=== PATIENT | male | born 1975 | race Caucasian/White ===

== ENCOUNTER 2018-05-29 13:14 | Inpatient (IN) | payer MEDICAID ==
[2018-05-29] MEDS ORDERED: cefTRIAXone(*) 2 GM VIAL 2 GM in NS(*) 0.9% 100 ML ADDVANT BAG 100 ML IVPB ONE (13:30)
[2018-05-29] MEDS ORDERED: NS(*) 0.9% 1000 ML BAG 1,000 ML IV ONE (13:30)
[2018-05-29] MEDS ORDERED: MORPHINE 4 MG/ML SDV IVP ONE ×2 (13:30→14:35)
[2018-05-29 13:42] LABS: PLATELET COUNT, AUTOMATED 255 K/uL (150-450)
--- NOTE | 2018-05-29 13:45 | ER Report ---
History and Physical Time Seen By MD: 13:18 Hx. of Stated Complaint: WOKE UP THIS AM WITH LACERATION LEFT ARM AND WRIST. STATES THAT HE DOES NOT RECALL ANY EVENTS UNTIL THREE DAYS AGO. HPI/ROS CHIEF COMPLAINT: Confusion and traumatic left arm injury HISTORY OF PRESENT ILLNESS: This is a 42-year-old male who presents to the emergency department via private vehicle for confusion and a traumatic injury to left arm. Patient states that he left [place] about 3 days ago does not seem to have a complete picture of what happened or where he is at this time. Patient states that he woke up this morning in an alley and noticed he had some deep wounds to the left arm which involve muscle, fascia and appears to have some tendon involvement as well. Patient states that he does not know what happened. Has no other traumatic injuries. Has a small abrasion to the right wrist. The blood to the left upper arm and left wrist are dark in color and all over. There is some pallor and no feeling to the left index and right thumb. He does have feeling and sensation to the left middle, ring and small finger. Patient appears anxious. Denies C-spine tenderness. Does describe intermittent chest pain as well. Patient denies headaches, nausea or vomiting. No aches, fevers or chills. REVIEW OF SYSTEMS: Constitutional: No fever, no chills. Eyes: No discharge. ENT: No sore throat. Cardiovascular: As above. Respiratory: No cough, no shortness of breath. Gastrointestinal: No abdominal pain, no vomiting. Genitourinary: No hematuria. Musculoskeletal: Above. Skin: As above. Neurological: As above. Allergies: Coded Allergies: No Known Drug Allergies (Unverified , 05/29/18) Home Meds No Active Prescriptions or Reported Meds Past Medical/Surgical History Patient has a past medical and surgical history of el to the lower legs secondary to work. Unable To Obtain Past Medical: Unable to Obtain/Update Reviewed Nurses Notes: Yes Constitutional Vital Sign - Last 24 Hours 05/29/18 05/29/18 05/29/18 05/29/18 13:17 13:30 14:00 14:30 Temp 98.5 Pulse 135 105 99 96 Resp 18 10 22 22 B/P (MAP) 138/87 124/82 (96) 111/69 (83) 127/83 (98) Pulse Ox 97 92 92 94 O2 Delivery Room Air 05/29/18 15:00 Pulse 93 Resp 10 B/P (MAP) 125/69 (87) Pulse Ox 91 Physical Exam General Appearance: The patient is alert, has no immediate need for airway protection and no signs of toxicity, appears anxious, alert to time, does understand that he is at the hospital however the events surrounding his injuries he is no recollection. Eyes: Pupils equal and round no pallor or injection. EOMs intact. No nystagmus. ENT, Mouth: Mucous membranes are dry. Respiratory: There are no retractions, lungs are clear to auscultation. Cardiovascular: Regular rate and rhythm, no murmurs, clicks or rubs. Gastrointestinal: Abdomen is soft and non tender, no masses, bowel sounds normal. Neurological: Alert and oriented to place, time and self. Following all commands. No focal neuro deficits however there is no sensation to the left thumb and index finger. Cranial nerves II through XII intact. Skin: A large open wound/laceration to the left upper forearm, the left wrist with exposed muscle, fascia and tendon. Dried blood over the left wrist and hand. Musculoskeletal: Neck is supple non tender. Extremities are nontender, nonswollen and have full range of motion. DIFFERENTIAL DIAGNOSIS: After history and physical exam differential diagnosis was considered for Medical Decision Making Data Points Result Diagram: 05/29/18 0000 05/29/18 1325 Laboratory Hematology Test 05/29/18 00:00 05/29/18 13:25 05/29/18 13:37 Red Blood Count 3.53 M/uL (4.00-5.60) Mean Corpuscular Volume 88.6 fL (80.0-96.0) Mean Corpuscular Hemoglobin 31.1 pg (26.0-33.0) Mean Corpuscular Hemoglobin Concent 35.1 g/dL (32.0-36.0) Red Cell Distribution Width 13.0 % (11.5-14.5) Mean Platelet Volume 9.4 fL (7.2-11.1) Neutrophils (%) (Auto) 76.8 % (39.4-72.5) Lymphocytes (%) (Auto) 16.7 % (17.6-49.6) Monocytes (%) (Auto) 5.4 % (4.1-12.4) Eosinophils (%) (Auto) 0.4 % (0.4-6.7) Basophils (%) (Auto) 0.7 % (0.3-1.4) Nucleated RBC Relative Count (auto) 0.0 /100WBC Neutrophils # (Auto) 13.1 K/uL (2.0-7.4) Lymphocytes # (Auto) 2.9 K/uL (1.3-3.6) Monocytes # (Auto) 0.9 K/uL (0.3-1.0) Eosinophils # (Auto) 0.1 K/uL (0.0-0.5) Basophils # (Auto) 0.1 K/uL (0.0-0.1) Nucleated RBC Absolute Count (auto) 0.00 K/uL Sodium Level 133 mmol/L (137-145) Potassium Level 3.8 mmol/L (3.5-5.0) Chloride Level 97 mmol/L (98-107) Carbon Dioxide Level 24 mmol/L (22-30) Blood Urea Nitrogen 34 mg/dl (9-21) Creatinine 2.10 mg/dl (0.66-1.25) Glomerular Filtration Rate Calc 35.2 Random Glucose 189 mg/dl (75-110) Lactate 3.0 mmol/L (0.7-2.1) Calcium Level 8.7 mg/dl (8.4-10.2) Total Bilirubin 0.6 mg/dl (0.2-1.3) Aspartate Amino Transf (AST/SGOT) 23 U/L (0-35) Alanine Aminotransferase (ALT/SGPT) 29 U/L (0-56) Alkaline Phosphatase 49 U/L (0-126) Total Protein 6.4 g/dl (6.3-8.2) Albumin 3.9 g/dl (3.5-5.0) Urine Color Yellow Urine Clarity Cloudy Urine pH 5.0 pH (4.8-9.5) Urine Specific Sabina 1.014 Urine Protein Negative mg/dL (NEGATIVE) Urine Glucose (UA) Negative mg/dL (NEGATIVE) Urine Ketones Negative mg/dL (NEGATIVE) Urine Blood Small (NEGATIVE) Urine Nitrite Negative (NEGATIVE) Urine Bilirubin Negative (NEGATIVE) Urine Urobilinogen Negative mg/dL (0.2-1.9) Urine Leukocyte Esterase Negative (NEGATIVE) Urine RBC <1 /HPF (0-2/HPF) Urine WBC 17 /HPF (0-5/HPF) Urine Squamous Epithelial Cells Moderate /LPF (</=FEW) Urine Bacteria Negative /HPF (NONE-FEW) Urine Hyaline Casts Moderate /LPF (NONE-FEW) Urine Mucus Few /HPF (NONE-FEW) Urine Opiates Screen Negative Urine Barbiturates Screen Negative Ur Tricyclic Antidepressants Screen Negative Urine Phencyclidine Screen Negative Urine Amphetamines Screen Negative Urine Benzodiazepines Screen Negative Urine Cocaine Screen Negative Urine Cannabinoids Screen Positive Serum Alcohol < 10 mg/dl Chemistry Test 05/29/18 00:00 05/29/18 13:25 05/29/18 13:37 White Blood Count 17.1 k/uL (4.5-11.0) Red Blood Count 3.53 M/uL (4.00-5.60) Hemoglobin 11.0 g/dL (14.0-18.0) Hematocrit 31.2 % (42.0-52.0) Mean Corpuscular Volume 88.6 fL (80.0-96.0) Mean Corpuscular Hemoglobin 31.1 pg (26.0-33.0) Mean Corpuscular Hemoglobin Concent 35.1 g/dL (32.0-36.0) Red Cell Distribution Width 13.0 % (11.5-14.5) Platelet Count 255 K/uL (150-450) Mean Platelet Volume 9.4 fL (7.2-11.1) Neutrophils (%) (Auto) 76.8 % (39.4-72.5) Lymphocytes (%) (Auto) 16.7 % (17.6-49.6) Monocytes (%) (Auto) 5.4 % (4.1-12.4) Eosinophils (%) (Auto) 0.4 % (0.4-6.7) Basophils (%) (Auto) 0.7 % (0.3-1.4) Nucleated RBC Relative Count (auto) 0.0 /100WBC Neutrophils # (Auto) 13.1 K/uL (2.0-7.4) Lymphocytes # (Auto) 2.9 K/uL (1.3-3.6) Monocytes # (Auto) 0.9 K/uL (0.3-1.0) Eosinophils # (Auto) 0.1 K/uL (0.0-0.5) Basophils # (Auto) 0.1 K/uL (0.0-0.1) Nucleated RBC Absolute Count (auto) 0.00 K/uL Glomerular Filtration Rate Calc 35.2 Lactate 3.0 mmol/L (0.7-2.1) Calcium Level 8.7 mg/dl (8.4-10.2) Total Bilirubin 0.6 mg/dl (0.2-1.3) Aspartate Amino Transf (AST/SGOT) 23 U/L (0-35) Alanine Aminotransferase (ALT/SGPT) 29 U/L (0-56) Alkaline Phosphatase 49 U/L (0-126) Total Protein 6.4 g/dl (6.3-8.2) Albumin 3.9 g/dl (3.5-5.0) Urine Color Yellow Urine Clarity Cloudy Urine pH 5.0 pH (4.8-9.5) Urine Specific Sabina 1.014 Urine Protein Negative mg/dL (NEGATIVE) Urine Glucose (UA) Negative mg/dL (NEGATIVE) Urine Ketones Negative mg/dL (NEGATIVE) Urine Blood Small (NEGATIVE) Urine Nitrite Negative (NEGATIVE) Urine Bilirubin Negative (NEGATIVE) Urine Urobilinogen Negative mg/dL (0.2-1.9) Urine Leukocyte Esterase Negative (NEGATIVE) Urine RBC <1 /HPF (0-2/HPF) Urine WBC 17 /HPF (0-5/HPF) Urine Squamous Epithelial Cells Moderate /LPF (</=FEW) Urine Bacteria Negative /HPF (NONE-FEW) Urine Hyaline Casts Moderate /LPF (NONE-FEW) Urine Mucus Few /HPF (NONE-FEW) Urine Opiates Screen Negative Urine Barbiturates Screen Negative Ur Tricyclic Antidepressants Screen Negative Urine Phencyclidine Screen Negative Urine Amphetamines Screen Negative Urine Benzodiazepines Screen Negative Urine Cocaine Screen Negative Urine Cannabinoids Screen Positive Serum Alcohol < 10 mg/dl Toxicology Test 05/29/18 13:37 Urine Opiates Screen Negative Urine Barbiturates Screen Negative Ur Tricyclic Antidepressants Screen Negative Urine Phencyclidine Screen Negative Urine Amphetamines Screen Negative Urine Benzodiazepines Screen Negative Urine Cocaine Screen Negative Urine Cannabinoids Screen Positive Serum Alcohol < 10 mg/dl Urinalysis Test 05/29/18 13:37 Urine Color Yellow Urine Clarity Cloudy Urine pH 5.0 pH (4.8-9.5) Urine Specific Sabina 1.014 Urine Protein Negative mg/dL (NEGATIVE) Urine Glucose (UA) Negative mg/dL (NEGATIVE) Urine Ketones Negative mg/dL (NEGATIVE) Urine Blood Small (NEGATIVE) Urine Nitrite Negative (NEGATIVE) Urine Bilirubin Negative (NEGATIVE) Urine Urobilinogen Negative mg/dL (0.2-1.9) Urine Leukocyte Esterase Negative (NEGATIVE) Urine RBC <1 /HPF (0-2/HPF) Urine WBC 17 /HPF (0-5/HPF) Urine Squamous Epithelial Cells Moderate /LPF (</=FEW) Urine Bacteria Negative /HPF (NONE-FEW) Urine Hyaline Casts Moderate /LPF (NONE-FEW) Urine Mucus Few /HPF (NONE-FEW) EKG/Imaging EKG Interpretation 12 lead EKG: Time of EKG 1345. Rhythm: Sinus tachycardia, ventricular rate 108 BPM. [place]: normal QRS: normal ST segments: No ST depression or elevation identified. Imaging Location: [facility] Patient: Alok Gallardo : 1975 Visit/Account:[id number] Date of Sevice: 05/29/2018 2 VIEWS CHEST INDICATION: Left-sided chest and arm pain. COMPARISON: None available FINDINGS: The lungs are clear. No effusion or pneumothorax is seen. Heart size and mediastinal contours are normal. IMPRESSION: 1. No radiographic evidence of active disease. Report Dictated By: Benedict Ronquillo at 05/29/2018 2:37 PM Report E-Signed By: Benedict Ronquillo at 05/29/2018 2:38 PM [id number]:[id number] ELBOW 3 VIEW LEFT Indication: Pain. Left upper extremity injury. Comparison: None Available Findings: 3 views of the left elbow are obtained. No acute fracture or dislocation is identified. There is no joint effusion. No acute osseous or joint centered abnormality. There is irregularity of the soft tissues involving the medial soft tissues of the proximal forearm. This is seen anteriorly on the lateral view. Correlate clinically. This may reflect a soft tissue laceration. IMPRESSION: 1. No acute fracture or dislocation of the left elbow. 2. Abnormal appearing soft tissues of the proximal and medial left forearm. Correlate with physical exam. No radiopaque foreign body. Report Dictated By: Benedict Ronquillo at 05/29/2018 2:38 PM Report E-Signed By: Benedict Ronquillo at 05/29/2018 2:41 PM [id number] FOREARM LEFT Indication: Arm injury. Comparison: None available Findings: 2 views of the left forearm are obtained. No acute fracture deformity is seen to involve the radius or the ulna. Distally, there is a soft tissue wound/ laceration along the volar and ulnar margin of the wrist. Proximally, there is felt to be irregularity of the soft tissues anteriorly and medially involving the proximal forearm. Correlate for an additional laceration. No radiopaque foreign body is seen proximally. Distally, there is a rounded density involving the ulnar soft tissues near the base of the laceration. A tiny foreign body here cannot be excluded. IMPRESSION: 1. No acute fracture deformity of the left forearm. 2. 2 separate soft tissue defects seen proximally and distally involving the left forearm/wrist as detailed above. A tiny foreign body associated with the distal wound cannot be excluded. Report Dictated By: Benedict Ronquillo at 05/29/2018 2:41 PM Report E-Signed By: Benedict Ronquillo at 05/29/2018 2:43 PM [id number] CT head without IV contrast HISTORY: Confusion, unknown how he arrived in [place]. COMPARISON: None. TECHNIQUE: Contiguous axial images were obtained from the skull base to the vertex without intravenous contrast. Sagittal and coronal reformatted images are also submitted. One of the following dose optimization techniques was utilized in the performance of this exam: Automated exposure control; adjustment of the mA and/ or kV according to the patient's size; or use of an iterative reconstruction technique. Specific details can be referenced in the facility's radiology CT exam operational policy. FINDINGS: Brain volume: Normal. Ventricles: Normal. Acute ischemic changes: None. Hemorrhage: No acute intracranial hemorrhage. Masses/edema: None. Dasilva-white: Negative. White matter: Normal. Vessels: Negative. Extra-axial: Negative. Calvarium/scalp: No acute fracture. Skull base/visualized face: Negative. Visualized sinuses/orbits: Mild mucosal thickening in the bilateral ethmoid air cells. 1 cm mucous retention cyst in the right sphenoid sinus. No air-fluid levels. IMPRESSION: No acute fracture, hemorrhage or intracranial mass lesion. No CT evidence of acute infarct. Report Dictated By: Steff Garza MD at 05/29/2018 2:37 PM Report E-Signed By: Steff Garza MD at 05/29/2018 3:04 PM [id number] WRIST LEFT MIN 3 VIEW Indication: Arm injury. Comparison: Exam is reviewed in conjunction with today's forearm images. Findings: 3 views of the left wrist are obtained. No acute fracture or dislocation is seen. There is a deep soft tissue defect seen along the volar aspect of the wrist which appears to extend both radially and ulnarly. Underlying neurovascular injury or tendon injury given the location of this deep soft tissue wound must be considered. There is a carpal boss best appreciated on the lateral view seen at the base of the third metacarpal. This is felt to account for a double density overlying the capitate on the frontal view. No definite soft tissue foreign body is seen within the wound itself. IMPRESSION: 1. No acute fracture or dislocation at the left wrist. 2. Deep volar sided soft tissue defect. Correlate with physical exam. Given the location and depth of this wound, this patient may be at risk for neurovascular injury or tendon injury. Report Dictated By: Benedict Ronquillo at 05/29/2018 2:44 PM Report E-Signed By: Benedict Ronquillo at 05/29/2018 2:57 PM [id number] ED Course/Re-evaluation ED Course The patient was admitted to room. A history and physical were obtained. Differential diagnoses were considered. An IV was started. A CBC, CMP, lactate, UA and toxicology screen were obtained. CBC showing white count of 17.1 with a left shift, H&H 11 and 31.2,History showing sodium 133, BUN 34, creatinine 2.10 , lactate 3.0. Urine showing small blood, 17 urine WBCs, negative urine bacteria , moderate Hylan casts, toxicology screen showing positive for cannabinoids, negative serum alcohol. Patient was given a 1 L normal saline bolus, 2 g ceftriaxone IV, 4 mg IV morphine 2. A left elbow, forearm and wrist x-ray were negative for any acute osseous abnormalities, no dislocations or fractures. Negative head CT. Negative chest x-ray. EKG showing normal sinus rhythm. There was a questionable foreign body on the forearm x-ray. I did consult speak with Dr. Meza as noted below, Dr. Cavanaugh and did come in and evaluate the patient, he is taking the patient to surgery for further evaluation of the tendons, washing the injury out and closure of the wound. The patient was admitted from the emergency department to the surgical department. Tetanus was updated. Patient did not want to report the unknown injury to low enforcement. 05/29/2018 3:15:39 pm I did speak with Dr. Meza regarding the patient's wounds and tendon involvement. I did recommend that Dr. Meza come in to formally evaluate the patient in person, he said he will be in later for evaluation. 05/29/2018 4:28:[address] Cavanaugh did come in and evaluate the patient, he is taking the patient to surgery. Decision to Disposition Date: May 29, 2018 Decision to Disposition Time: 16:34 Depart Departure Latest Vital Signs Vital Signs Date Time Temp Pulse Resp B/P (MAP) Pulse Ox O2 Delivery O2 Flow Rate FiO2 05/29/18 15:00 93 10 125/69 (87) 91 05/29/18 13:17 98.5 Room Air Impression: Primary Impression: Open wound of left forearm Additional Impressions: Open wound of left wrist Flexor tendon laceration of left wrist with open wound Adverse clinical event associated with anesthesia Condition: Improved Disposition: ADMIT FROM ER TO OR New Scripts No Active Prescriptions or Reported Meds Problem Qualifiers Primary Impression: Open wound of left forearm Encounter type: initial encounter Qualified Codes: S51.802A - Unspecified open wound of left forearm, initial encounter Additional Impressions: Open wound of left wrist Encounter type: initial encounter Qualified Codes: S61.502A - Unspecified open wound of left wrist, initial encounter Flexor tendon laceration of left wrist with open wound Encounter type: initial encounter Qualified Codes: S66.922A - Laceration of unspecified muscle, fascia and tendon at wrist and hand level, left hand, initial encounter; S61.502A - Unspecified open wound of left wrist, initial encounter Adverse clinical event associated with anesthesia Encounter type: initial encounter Qualified Codes: T41.45XA - Adverse effect of unspecified anesthetic, initial encounter JEREMIAH MARTIN-CHRISTOPHER May 29, 2018 13:45
--- NOTE | 2018-05-29 13:53 | EKG ---
FACILITY: [facility] - [place] PATIENT NAME: JAMEY LEYVA : [id number] MR: [id number] V: [id number] EXAM DATE: ORDERING PHYSICIAN: JEREMIAH MARTIN TECHNOLOGIST: USAMA Ambrocio Reason : ALOC Blood Pressure : / mmHG Vent. Rate : 108 BPM Atrial Rate : 108 BPM P-R Int : 120 ms QRS Dur : 092 ms QT Int : 352 ms P-R-T Axes : 057 076 025 degrees QTc Int : 471 ms Sinus tachycardia Otherwise normal ECG No previous ECGs available Confirmed by KAYDEN DAVISON ([id number]) on 05/29/2018 7:18:47 PM Referred By: EVELYN Confirmed By:KAYDEN DAVISON
[2018-05-29] MEDS ORDERED: DIPHTH/TETANUS/ACEL. PERTUSSIS IM ONLY ONE (14:15)
--- NOTE | 2018-05-29 14:43 | RADIOLOGY IMAGING REPORT ---
FACILITY: [facility] - [place] PATIENT NAME: Alok Gallardo : 1975 MR: [id number] V: [id number] EXAM DATE: ORDERING PHYSICIAN: JEREMIAH MARTIN TECHNOLOGIST: Location: [facility] Patient: Alok Gallardo : 1975 Visit/Account:[id number] Date of Sevice: 05/29/2018 2 VIEWS CHEST INDICATION: Left-sided chest and arm pain. COMPARISON: None available FINDINGS: The lungs are clear. No effusion or pneumothorax is seen. Heart size and mediastinal contours are nor mal. IMPRESSION: 1. No radiographic evidence of active disease. Report Dictated By: Benedict Ronquillo at 05/29/2018 2:37 PM Report E-Signed By: Benedict Ronquillo at 05/29/2018 2:38 PM WSN:[id number]
--- NOTE | 2018-05-29 14:45 | RADIOLOGY IMAGING REPORT ---
FACILITY: [facility] - [place] PATIENT NAME: Alok Gallardo : 1975 MR: [id number] V: [id number] EXAM DATE: ORDERING PHYSICIAN: JEREMIAH MARTIN TECHNOLOGIST: Location: [facility] - [place] Patient: Alok Gallardo : 1975 Visit/Account:[id number] Date of Sevice: 05/29/2018 ELBOW 3 VIEW LEFT Indication: Pain. Left upper extremity injury. Comparison: None Available Findings: 3 views of the left elbow are obtained. No acute fracture or dislocation is identified. There is no j oint effusion. No acute osseous or joint centered abnormality. There is irregularity of the soft tiss ues involving the medial soft tissues of the proximal forearm. This is seen anteriorly on the lateral view. Correlate clinically. This may reflect a soft tissue laceration. IMPRESSION: 1. No acute fracture or dislocation of the left elbow. 2. Abnormal appearing soft tissues of the proximal and medial left forearm. Correlate with physical e xam. No radiopaque foreign body. Report Dictated By: Benedict Ronquillo at 05/29/2018 2:38 PM Report E-Signed By: Benedict Ronquillo at 05/29/2018 2:41 PM WSN:[id number]
--- NOTE | 2018-05-29 14:47 | RADIOLOGY IMAGING REPORT ---
[facility] PATIENT NAME: Alok Gallardo : 1975 MR: [id number] V: [id number] EXAM DATE: ORDERING PHYSICIAN: JEREMIAH MARTIN TECHNOLOGIST: Location: [facility] Patient: Alok Gallardo : 1975 Visit/Account:[id number] Date of Sevice: 05/29/2018 FOREARM LEFT Indication: Arm injury. Comparison: None available Findings: 2 views of the left forearm are obtained. No acute fracture deformity is seen to involve the radius o r the ulna. Distally, there is a soft tissue wound/laceration along the volar and ulnar margin of the wrist. Proximally, there is felt to be irregularity of the soft tissues anteriorly and medially invo lving the proximal forearm. Correlate for an additional laceration. No radiopaque foreign body is see n proximally. Distally, there is a rounded density involving the ulnar soft tissues near the base of the laceration. A tiny foreign body here cannot be excluded. IMPRESSION: 1. No acute fracture deformity of the left forearm. 2. 2 separate soft tissue defects seen proximally and distally involving the left forearm/wrist as de tailed above. A tiny foreign body associated with the distal wound cannot be excluded. Report Dictated By: Benedict Ronquillo at 05/29/2018 2:41 PM Report E-Signed By: Benedict Ronquillo at 05/29/2018 2:43 PM WSN:[id number]
--- NOTE | 2018-05-29 15:01 | RADIOLOGY IMAGING REPORT ---
FACILITY: [facility] [place] PATIENT NAME: Alok Gallardo : 1975 MR: [id number] V: [id number] EXAM DATE: ORDERING PHYSICIAN: JEREMIAH MARTIN TECHNOLOGIST: Location: [facility] Patient: Alok Gallardo : 1975 Visit/Account:[id number] Date of Sevice: 05/29/2018 WRIST LEFT MIN 3 VIEW Indication: Arm injury. Comparison: Exam is reviewed in conjunction with today's forearm images. Findings: 3 views of the left wrist are obtained. No acute fracture or dislocation is seen. There is a deep sof t tissue defect seen along the volar aspect of the wrist which appears to extend both radially and ul narly. Underlying neurovascular injury or tendon injury given the location of this deep soft tissue w ound must be considered. There is a carpal boss best appreciated on the lateral view seen at the base of the third metacarpal. This is felt to account for a double density overlying the capitate on the frontal view. No definite soft tissue foreign body is seen within the wound itself. IMPRESSION: 1. No acute fracture or dislocation at the left wrist. 2. Deep volar sided soft tissue defect. Correlate with physical exam. Given the location and depth of this wound, this patient may be at risk for neurovascular injury or tendon injury. Report Dictated By: Benedict Ronquillo at 05/29/2018 2:44 PM Report E-Signed By: Benedict Ronquillo at 05/29/2018 2:57 PM WSN:[id number]
--- NOTE | 2018-05-29 15:08 | RADIOLOGY IMAGING REPORT ---
[place] [facility] [place] Alok Gallardo : 1975 MR: [id number] V: [id number] EXAM DATE: ORDERING PHYSICIAN: JEREMIAH MARTIN TECHNOLOGIST: Location: [facility] [place] Patient: Alok Gallardo : 1975 Visit/Account:[id number] Date of Sevice: 05/29/2018 EXAMINATION: CT head without IV contrast HISTORY: Confusion, unknown how he arrived in [place]. COMPARISON: None. TECHNIQUE: Contiguous axial images were obtained from the skull base to the vertex without intraven ous contrast. Sagittal and coronal reformatted images are also submitted. One of the following dose optimization techniques was utilized in the performance of this exam: Autom ated exposure control; adjustment of the mA and/or kV according to the patient's size; or use of an i terative reconstruction technique. Specific details can be referenced in the facility's radiology C T exam operational policy. FINDINGS: Brain volume: Normal. Ventricles: Normal. Acute ischemic changes: None. Hemorrhage: No acute intracranial hemorrhage. Masses/edema: None. Dasilva-white: Negative. White matter: Normal. Vessels: Negative. Extra-axial: Negative. Calvarium/scalp: No acute fracture. Skull base/visualized face: Negative. Visualized sinuses/orbits: Mild mucosal thickening in the bilateral ethmoid air cells. 1 cm mucous r etention cyst in the right sphenoid sinus. No air-fluid levels. IMPRESSION: No acute fracture, hemorrhage or intracranial mass lesion. No CT evidence of acute infarct. Report Dictated By: Steff Garza MD at 05/29/2018 2:37 PM Report E-Signed By: Steff Garza MD at 05/29/2018 3:04 PM WSN:[id number]
[2018-05-29] MEDS ORDERED: LIDOCAINE MPF 1% 5 ML VIAL ONE (16:47)
[2018-05-29] MEDS ORDERED: METOCLOPRAMIDE 10 MG/2 ML SDV ONE (16:47)
[2018-05-29] MEDS ORDERED: DEXAMETHASONE SOD 4 MG/ML VIAL ONE (16:47)
[2018-05-29] MEDS ORDERED: ONDANSETRON 4 MG/2 ML VIAL ONE (16:47)
[2018-05-29] MEDS ORDERED: PROPOFOL EMUL(*) 10MG/ML 20 ML 20 ML ONE (16:47)
[2018-05-29] MEDS ORDERED: fentaNYL CITR 250 MCG/5 ML AMP ONE (17:03)
[2018-05-29] MEDS ORDERED: ROPIVACAINE 0.2% 20 ML VIAL ONE (17:07)
[2018-05-29] MEDS ORDERED: NORMOSOL R SOLN(*) 1000 ML BAG 1,000 ML IV ONE ×2 (17:12→21:45)
[2018-05-29] MEDS ORDERED: FAMOTIDINE(*) 20MG/50ML PREMIX 50 ML IVPB ONE (17:12)
[2018-05-29] MEDS ORDERED: LACTATED RINGER 3000 ML BAG IR ONE (18:22)
[2018-05-29] MEDS ORDERED: NS 0.9% IRRIGATION 1000ML PLCT IR ONE (18:23)
[2018-05-29] MEDS ORDERED: BACITRACIN/POLYMY B OINT 15 GM TP ONE (19:21)
[2018-05-29] MEDS ORDERED: fentaNYL CITR 100 MCG/2 ML AMP ONE ×4 (19:32→21:59)
[2018-05-29] MEDS ORDERED: HEPARIN SOD LCK FLSH 100 UN/ML ONE (19:32)
[2018-05-29] MEDS ORDERED: LIDOCAINE 2% IV 100 MG/5ML SYR ONE (20:46)
[2018-05-29] MEDS ORDERED: SUGAMMADEX SOD 200 MG/2 ML SDV ONE (20:50)
[2018-05-29] MEDS ORDERED: HYDROmorphone HCL 2 MG/ML SDV ONE (21:27)
--- NOTE | 2018-05-29 21:36 | CONSULTATION ---
EVENT DATE: May 29, 2018 ATTENDING PHYSICIAN Emergency Room CONSULTING PHYSICIAN Sebastian Cavanaugh MD REASON FOR CONSULTATION I was contacted by my partner, Dr. Meza, to evaluate a patient in the Emergency Room because he was busy in clinic and could not get down. The patient had a very odd story, and we really do not know a lot about him. 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 He was on vacation and was touring [facility]. He has no family members in this area, and he has no recollection of how he got to [place]. He woke up this morning in an alleyway here in this town with two large lacerations on his forearm and wrist and extensive evidence of blood loss around him and on his clothing. There was no blood in his vehicle. He felt quite dizzy and weak. He had a headache and chest pain. He followed signs for hospitals and came here to [facility]. He does not recall driving to [place] and does not remember any type of an injury or an assault. He has no suicidal ideation and never had any in the past. He does admit to drinking occasionally, and he thinks he might have done some binge drinking, but he does not have any recollection of the last several days. He does admit to occasionally using marijuana, but only infrequently. His tox screen did show a slight amount of marijuana, but no other evidence of drug use, and his alcohol level was zero. He remains somewhat confused. His head CT was normal. H and H did show some signs of decrease, but it was still very acceptable with a hematocrit of 30. His white count was 17. We do not know how long ago the lacerations happened. I asked him how long ago it had been since he ate, and he suspects that it might have been several days. PHYSICAL EXAMINATION There is a large oblique laceration on the volar forearm with open fascia and muscle involvement. There is another laceration distally at the wrist which looks fairly deep. I did not explore because it was too tender. There was a lot of old, dried blood caked around with scab formation. No sign of purulence at this time, but certainly, this risk of infection is extremely high in this situation if it has been open for several days. He has decreased sensory function in the median nerve distribution, normal sensory function in the ulnar nerve distribution. Motor function of the ulnar nerve was difficult to test, but I believe the intrinsics are working. It does not appear that he has FPL function, but FDS and FDP function to the index through small fingers appears to be intact. At this point, it appears he has at least a laceration of the flexor pollicis longus and perhaps partial lacerations to other tendons. The flexor carpi radialis may be lacerated as well. More proximally, it looks like it is mostly a muscle belly laceration. I do not see any evidence of arterial bleeding. His hand is vascularized. DIAGNOSTIC DATA X-rays reportedly showed no evidence of foreign body or fracture. ASSESSMENT AND PLAN These wounds are far too large to treat locally. It does require general anesthetic with irrigation, debridement, and hopefully closure if we get adequate debridement to protect the tendons and muscle beneath these. The risk of infection is moderately high. He has already received an antibiotic. Will give him additional. I told him that the median nerve would most likely be repairable, but probably would not start functioning for some time, most likely approximately half a year for the sensory nerve function in the tip of the finger, and it will not come back completely, but hopefully it will have protective sensation. The flexor pollicis longus tendon should be able to function fairly early, but he would require physical therapy and splinting. Final determination about the level of injury will, of course, be made at the time of exploration. Additional information was acquired after my initial dictation once I had been able to pull up records. He has been afebrile with stable vital signs, blood pressure around 125/69. He did have occasional tachycardia at 135, but normally he was in the mid 90s. White count was 17.1. Hemoglobin was 11. Hematocrit was 31.2. He did have a left shift at 76.8 with elevated lymphocytes at 16.7. His glucose was elevated, suggesting diabetes at 189. Blood alcohol level was less than 10 mg/dL. Opiate, barbiturate, tricyclic, phencyclidine, amphetamine, and benzodiazepine screen was all normal. He did test positive for cannabinoids. I did review x-rays of his elbow, forearm, and wrist. The soft tissue lacerations are visible on these x-rays, but there is no evidence of foreign body or fracture. In addition, I looked at his chest x- ray. I see no evidence of other trauma. There is no rib fracture. I do not see any sign of a pulmonary lesion. MTDD
[2018-05-29 21:46] LABS: PLATELET COUNT, AUTOMATED 186 K/uL (150-450)
[2018-05-29 22:22] VITALS: BP 143/85
[2018-05-29] MEDS ORDERED: HEPARIN* SOD/D5W 25000 U/500ML 500 ML IV SCH ×3 (22:40→23:30)
[2018-05-29] MEDS ORDERED: MORPHINE 1 MG/ML 30 ML PCA IV PRN ×2 (22:40→23:10)
[2018-05-29] MEDS ORDERED: MAGNESIUM CITRATE 300 ML BTL PO ONE (22:40)
--- NOTE | 2018-05-29 22:47 | OPERATIVE REPORT 1 ---
EVENT DATE: May 29, 2018 SURGEON: Sebastian Cavanaugh MD ANESTHESIOLOGIST: Vaibhav Larios MD ANESTHESIA: General. COMMODITIES CLERK: Alok Winkler PA-C PREOPERATIVE DIAGNOSIS Lacerations to forearm and wrist on left upper extremity which appeared to be self-inflicted, but the patient denies same, and yet the patient also has no recollection of the past several days. POSTOPERATIVE DIAGNOSES 1. A 12 cm laceration, left forearm. 2. Complete transverse laceration at wrist, zone 5. 3. Zone 6 laceration of flexor digitorum superficialis muscle belly. 4. Zone 5 lacerations of the following tendons: Abductor pollicis longus, extensor pollicis brevis, flexor digitorum profundus, index; flexor digitorum profundus, long; flexor digitorum superficialis, long; flexor digitorum superficialis, index; flexor pollicis longus, flexor carpi ulnaris, flexor carpal radialis, and palmaris longus. 5. A 100% laceration of radial artery which had clotted off. 6. A 50% laceration of ulnar artery which presumably was still functioning to some extent. 7. Median nerve laceration 100%. PROCEDURES PERFORMED 1. Exploration of wounds at forearm and wrist with debridement and closure of 12 and 7 cm lacerations at proximal forearm and wrist respectively. 2. Median nerve repair. 3. Repair of laceration at forearm with repair of flexor digitorum superficialis zone 6. 4. Repair of laceration at wrist with repair of abductor pollicis longus, extensor pollicis brevis, flexor digitorum profundus to index and long; flexor digitorum superficialis to index and long; flexor pollicis longus, flexor carpi ulnaris, flexor carpi radialis, palmaris longus. 5. Ligation of stumps of radial artery. 6. Repair of sidewall ulnar artery, including heparin administration. ESTIMATED BLOOD LOSS 70 INTRAVENOUS FLUIDS 1600 TOURNIQUET TIME 129 SPECIMENS No specimens. COMPLICATIONS No complications. IMPLANTS USED No implants. SUMMARY OF PROCEDURE The patient was brought into the operating room and placed on the OR table in the supine position with the hand table to his left side. After obtaining adequate general anesthesia, the left upper extremity was prepped and draped. The prepping process was fairly lengthy because we had to scrub off all the old blood and then wash his hand and forearm which were crusted over since these wounds were not fresh. We then used pulsatile lavage to clean the wounds, having exsanguinated the limb and inflated the tourniquet. There was no gross contamination of the wound that I could identify. Based on the pattern of the incisions, it appeared to be a self-inflicted laceration, but this is not certain. For a [id number] individual, the obliquity of the lacerations would fit. It appears that it was at extremely violent force because on the distal laceration, it went all the way down to the bone and scored the bone with a fairly deep groove. This was primarily on the volar radial aspect. We started with the proximal incision, washing this out, debriding damaged tissue on the margins, and then repaired the FDS in zone 6 using Vicryl suture in multiple positions. This was then irrigated one more time and then left with a moist Ray-Jing covering it. We then moved to the distal incision where most of the damage had occurred. After debriding this area, irrigating it, and then extending the incision both distally and proximally, we tied back the flaps and began to work on the damaged tissue. We started from radial and moved to ulnar. The extensor pollicis brevis and abductor pollicis longus were seen to be lacerated. We did a core and epitendinous suture on both of them. At this point, we noted that the radial artery was in two pieces, but it was not bleeding extensively at the time of his initial evaluation before tourniquet inflation, and the hand did appear vascularized, so at this point, I just tied it off because I did not want to have the artery bleed later. The FDP to the index was next identified, repaired with a core suture of 4-0 FiberWire loop sutures and epitendinous suture. We then did the FDP tendon to the long finger in similar fashion. Next , we moved towards the superficial aspects and repaired the FDS to the long and index, again with a core suture and epitendinous repair. At this point, we went back and searched for the flexor pollicis longus and found it, repairing this with a core suture using FiberLoop and then an epitendinous repair. Moving toward the ulnar aspect, we noted that the FCU and the FCR were both lacerated. We left the FCU for the time being. The median nerve was seen to be completely lacerated, which is quite unfortunate. In addition, a surprise finding was that the ulnar artery had a 50% laceration along its side with a large hematoma blocking it. I would assume that this is what was keeping hand alive, so I took great care to protect this artery. We cleaned off the margins and then irrigated it with saline first, after which I did a heparin flush using an Angiocath distally and proximally to clear it to the best of my ability. I then placed background behind it and used 6-0 Prolene suture with micro instruments to repair the sidewall injury. We then continued the repair with #2 FiberWire suture for the flexor carpi ulnaris as well as the flexor carpi radialis, but before repairing the flexor carpi radialis, we did a full eponeurial repair of the median nerve. I took care to ensure that the fascicles were completely contained in the repair. Finally, as noted previously , the FCR was repaired. During the remainder of this case, the hand was kept flexed which was critical to maintain position. We did repair the palmaris longus mainly because I felt it could be used later as a graft, certainly not because it was critical. We then irrigated once again, deflated the tourniquet , checked for bleeding. The ulnar artery seems to be working to some extent as one could poke the finger and get bleeding, but his hand is definitely at risk. We gave him 5000 units of heparin and irrigated all the wounds again before closing with nylon. He was given a dry, sterile dressing and a dorsal splint, keeping his fingers and wrist flexed with a thumb outrigger to protect that tendon as well. He was sent to the Intensive Care Unit where he would remain on a heparin drip, and I will instruct the nurses to monitor the status of his hand such that he could be life flighted to [place] if necessary. Hopefully, he will remember how he got to [place] before he heads back to [place]. CRAIG
[2018-05-29 23:00] VITALS: BP 173/77
[2018-05-29] MEDS ORDERED: KCL/D5LR 20 MEQ/1000 ML PREMIX 1,000 ML IV SCH (23:10)
[2018-05-29 23:15] VITALS: BP 178/84
[2018-05-29] MEDS ORDERED: INSULIN HUM LISPRO 100 UN/ML 3 ML VIAL SUBQ PRN (23:25)
[2018-05-29 23:30] VITALS: BP 176/81
--- NOTE | 2018-05-29 23:40 | Hospitalist Consultation ---
History of Present Illness Requesting Physician Mao Reason for Consult Management of heparin drip History of Present Illness 42yo male who is smoker who was came to the ER for bleeding of his left arm and dizziness. He is from [place] and has been traveling in his car for the last couple of days. 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 The events over the last couple days are not clear to him. He is not able to say where he was going, where he has been, or when he planned on going home. He denies any head trauma. He reports waking up in an alley in [place] and noticed blood on his left arm. He has no recollection of how he came to [place]. He felt light headed and weak. He noted chest discomfort. He was able to find his car, so he got in it and drove to the ER. He denies any recent emotional traumas or events. He denies suicidal ideation or any previous suicide attempts. He denies headache/blurry vision/double vision/f/c/n /v/sob/diarrhea. He still has some slight chest discomfort. He currently smokes 1/2 ppd and has smoked for almost 30 years. He does binge drink up to a 12 pack of beer about 2x/week. He doesn't drink the other days of the week. He smokes marijuana occasionally, but denies any other drug use. He denies any h/o DVT/PE/COPD/asthma/CVD/CHF/CAD/T2DM/HTN. He takes no prescription medications. In the OR, he had about 70cc of blood loss. He received about 1500cc of crystalloid fluid. He did receive doses of heparin into the arteries of the hand. History Problems: (1) History of tonsillectomy Home Meds No Active Prescriptions or Reported Meds Allergies: Coded Allergies: No Known Drug Allergies (Unverified , 05/29/18) Other Social/Family Hx See HPI. Review of Systems All Systems Reviewed/Normal: Yes, Except as Noted Exam Vital Signs Vital Signs Date Time Temp Pulse Resp B/P (MAP) Pulse Ox O2 Delivery O2 Flow Rate FiO2 05/29/18 21:11 111 20 99 05/29/18 17:00 130/79 (96) 05/29/18 13:17 98.5 Room Air General Appearance: Alert, Awake, No Acute Distress, Other (No obvious trauma to head.) Eyes: PERRLA ENT: Moist Mucous Membranes Cardiovascular: Other (Regular, tachy, no m/r/g) Respiratory: Clear to Auscultation GI: Abd Soft and Non-Tender Extremities: No Edema Integumentary: Other (distal tip of fingers are warm. Pulse oximeter has a good wave form consistent with the wave form from the other hand) Medical Decision Making Data Points Result Diagram: 05/29/18213405/29/181324 Item Value Date Time Hemoglobin 11.0 g/dL L 05/29/18 0000 Hemoglobin 9.8 g/dL L 05/29/182134 White Blood Count 16.6 k/uL H 05/29/182134 White Blood Count 17.1 k/uL H 05/29/18 0000 Neutrophils (%) (Auto) 76.8 % H 05/29/18 0000 Neutrophils (%) (Auto) 89.3 % H 05/29/182134 Mean Corpuscular Volume 88.6 fL 05/29/18 0000 Mean Corpuscular Volume 90.4 fL 05/29/182134 Platelet Count 186 K/uL 05/29/182134 Platelet Count 255 K/uL 05/29/18 0000 Heparin Anti-Xa Act, Low Molec Wt 0.64 IU/mL 05/29/182157 Activated Partial Thromboplast Time 83 seconds H 05/29/182157 Blood Urea Nitrogen 34 mg/dl H 05/29/18 1325 Creatinine 2.10 mg/dl H 05/29/18 1325 Lactate 3.0 mmol/L H 05/29/18 1325 Calcium Level 8.7 mg/dl 05/29/18 1325 Total Bilirubin 0.6 mg/dl 05/29/18 1325 Aspartate Amino Transf (AST/SGOT) 23 U/L 05/29/18 1325 Alanine Aminotransferase (ALT/SGPT) 29 U/L 05/29/18 1325 Alkaline Phosphatase 49 U/L 05/29/18 1325 Total Protein 6.4 g/dl 05/29/18 1325 Albumin 3.9 g/dl 05/29/18 1325 Random Glucose 189 mg/dl H 05/29/18 1325 Urine Blood Small 05/29/18 1337 Urine RBC <1 /HPF 7/17/18 1337 Urine WBC 17 /HPF 05/29/18 1337 Urine Squamous Epithelial Cells Moderate /LPF H 05/29/18 1337 Urine Bacteria Negative /HPF 05/29/18 1337 Urine Hyaline Casts Moderate /LPF H 05/29/18 1337 Urine Mucus Few /HPF 05/29/18 1337 Serum Alcohol < 10 mg/dl 05/29/18 1337 Urine Cannabinoids Screen Positive 05/29/18 1337 EKG / Imaging EKG Interpretation Vent. Rate : 108 BPM Atrial Rate : 108 BPM P-R Int : 120 ms QRS Dur : 092 ms QT Int : 352 ms P-R-T Axes : 057 076 025 degrees QTc Int : 471 ms Sinus tachycardia Otherwise normal ECG No previous ECGs available Confirmed by KAYDEN DAVISON ([id number]) on 05/29/2018 7:18:47 PM Imaging CXR - 1. No radiographic evidence of active disease. Head CT - No acute fracture, hemorrhage or intracranial mass lesion. No CT evidence of acute infarct. See Hospital chart for elbow/forearm/wrist xray reports. Assessment and Plan Problems: (1) Open wound of left wrist Status: Acute Assessment & Plan: He presented with lacerations on the left wrist and forearm that appear self inflicted. The patient denies suicidal ideation or previous history of suicide attempts. However, he reports no recollection of the last couple of days, nor how he got to [place]. He does report 2x/week binge drinking. He will need a BHS evaluation before discharge. He had surgical repair this evening. See Dr. Cosby's note for details. Dr. Cosby wants to have the patient on a heparin drip. The patient did receive heparin in the OR, such that baseline PTT and heparin anti-factor Xa are elevated. He will be placed on the weight based protocol and following heparin anti-factor Xa. (2) Anemia due to blood loss Status: Acute Assessment & Plan: Secondary to transection of the radial artery and damage from lacerations. He presented with tachycardia, an elevated lactate and low Hgb. BP has remained stable. His Hgb after surgery dropped slightly. Will recheck Hgb and lactate. (3) ARF (acute renal failure) Status: Acute Assessment & Plan: Likely secondary to blood loss. He is getting hydration. Will follow. (4) Hyperglycemia Status: Acute Assessment & Plan: He denies a h/o of T2DM. Will follow glucose AC and HS with SSI level 2 to cover. HgA1C pending. (5) Pyuria Status: Acute Assessment & Plan: He is asymptomatic, but does have an elevated WBC. Will culture the urine and follow the WBC. Copies to: JUNAID COSBY MD Venous Thromboembolism Antithrombotics Is Pt On Any Antithrombotics?: No Exam Sepsis Risk: No Definite Risk Problem Qualifiers (1) Open wound of left wrist: Encounter type: initial encounter Qualified Codes: S61.502A - Unspecified open wound of left wrist, initial encounter KAYDEN DAVISON MD May 29, 2018 23:40
[2018-05-29 23:45] VITALS: BP 162/98
[2018-05-30] VITALS (29 sets, daily range): BP systolic 132–175; BP diastolic 68–110
[2018-05-30] MEDS: ceFAZolin 1 GM VIAL IVP SCH ×2 (00:43→08:56)
[2018-05-30] MEDS ORDERED: ceFAZolin 1 GM VIAL IVP SCH (01:00)
[2018-05-30] MEDS ORDERED: INSULIN HUM LISPRO 100 UN/ML 3 ML VIAL SUBQ PRN (01:20)
[2018-05-30 06:03] LABS: PLATELET COUNT, AUTOMATED 174 K/uL (150-450)
[2018-05-30] MEDS ORDERED: MAGNESIUM CITRATE 300 ML BTL PO PRN (09:00)
[2018-05-30] MEDS ORDERED: ASPIRIN 325 MG TAB PO SCH (09:00)
[2018-05-30] MEDS ORDERED: NS(*) 0.9% 250 ML BAG 250 ML IV SCH (09:35)
--- NOTE | 2018-05-30 11:39 | Antimicrobial Stewardship ---
Antimicrobial Time Out Antimicrobial Stewardship MD Service: Hospitalist Indications: Other (Laceration of the arm with deep muscle and tendon damage) Antimicrobial Used Cefazolin Start Date: May 29, 2018 Culture Results: No Eligible for PO Conversion Eligable for PO Conversion: No Reviewed with Provider Reviewed w/ Provider on Rounds: Yes Date Reviewed w/ Provider: May 30, 2018 Comments Comments 42 yo M with left arm lacerations with deep tissue and tendon damage, repaired by Dr. Cavanaugh. Unknown time and event timelines, patient reports confusion. afebrile with elevated WBCs Treatment with Cefazolin 1g IV q8h, to continue for a minimum of 24 h IV, then consideration of oral antibiotics to complete a course of treatment for 7-10 day. Would recommend a longer duration, as wound timeline unknown. Will monitor temp, wbcs, etc. Cami Corey, PharmD, BCOP [facility]I COREY May 30, 2018 11:39
--- NOTE | 2018-05-30 14:16 | Hospitalist Progress Note ---
Subjective Progress Notes Subjective Pt presented with laceration of the L forearm. No adverse events overnight. Patient Complains of: Neurological: No: Syncope, Confusion, Weakness, Dizziness, Slurred Speech, Other Cardiovascular: No: Chest Pain, Palpitations, Orthostatic Hypotension, Other Respiratory: No: Cough, Congestion, Shortness of Breath, Wheezing, Other Gastrointestinal: No Nausea, No Vomiting, No Flatus, No Bowel Movement, No Other Genitourinary: No Dysuria, No Hematuria, No Urinary Incontinence, No Other Musculoskeletal: Pain Physical Exam Vital Signs Date Time Temp Pulse Resp B/P (MAP) Pulse Ox O2 Delivery O2 Flow Rate FiO2 05/30/18 11:30 98.6 05/30/18 11:15 99 13 96 Room Air 05/30/18 11:10 164/79 05/30/18 10:30 1.0 Intake and Output 05/31/18 07:00 Intake Total 490 ml Output Total 775 ml Balance -285 ml Intake Oral 240 ml Blood Product 250 ml Output Urine Total 775 ml General Appearance: Alert, Awake, No Acute Distress Neuro: No Gross deficits Eyes: PERRLA ENT: Normal Neck: No Masses Cardiovascular: Normal Rhythm & Peripheral Pulses Respiratory: No Respiratory Distress Chest: No Masses GI: Soft and Non-Tender Lymph: No Adenopathy Musculoskeletal: Other (Pain of L hand, numbness) Extremities: Warm, Pulses Integumentary: Skin Intact without Lesion / Mass Psych: Alert & Oriented X3 Result Diagram: 05/30/18 0540 05/30/18 0545 Assessment and Plan Problems: (1) Open wound of left wrist Status: Acute Assessment & Plan: He presented with lacerations on the left wrist and forearm that appear self inflicted. The patient denies suicidal ideation or previous history of suicide attempts. However, he reports no recollection of the last couple of days, nor how he got to [place]. He does report 2x/week binge drinking. He had surgical repair 05.29.18. See Dr. Cavanaugh's note for details. Transfused on unit PRBC as he was mildly hypoxic and had significant blood loss prior to arrival. If Hgb stable would be ok with d/c from medical standpoint after [facility] evaluates. (2) Anemia due to blood loss Status: Acute Assessment & Plan: Secondary to transection of the radial artery and damage from lacerations. Transfused one unit PRBC given hypoxia and low Hgb. (3) ARF (acute renal failure) Status: Resolved Assessment & Plan: 2/2 blood loss and hypotension, resolved with IV fluid. (4) Hyperglycemia Status: Acute Assessment & Plan: He denies a h/o of T2DM. Stop glucose checks and SSI. HgA1C 5.7 (5) Asymptomatic bacteriuria Assessment & Plan: Pt asymptomatic. WBC in urine with mild leukocytosis, leukocytosis likely stress reaction and improved. Exam Sepsis Risk: No Definite Risk Problem Qualifiers (1) Open wound of left wrist: Encounter type: initial encounter Qualified Codes: S61.502A - Unspecified open wound of left wrist, initial encounter SEFERINO LOZOYA DO May 30, 2018 14:16
--- NOTE | 2018-05-30 15:57 | Psychiatric Consult ---
History of Present Illness Requesting Physician Dr. Arcelia Armando Reason for Consult: Psychiatric Illness Reason for Consult Pt with wound to left arm who states he does not remember how it happened, concern for whether or not this was suicide attempt. History of Present Illness 42 year old male who says he woke up in an alley in [place], covered in blood, with no memory for the previous couple of days or of how he was injured. He was able to drive himself to the ER, where CT of head was unremarkable. He underwent surgery for a deep wound to left arm which included lacerated tendons and radial artery. Throughout his hospital stay he has denied that this was a suicide attempt, and continues to state he does not remember the past two days or so. Pt said he left [place] maybe 4-6 days ago to go on a road trip. He remembers stopping to see the view and the mountains. Then he woke up in the alley. I got his permission to contact his family and also the [place] [employer]. His sister, Cathy Gallardo ([phone]) returned my call. She is a registered nurse and considered reliable informant based on her fund of knowledge, and calm but concerned demeanor. She stated that pt. has no prior history of suicidal thinking or behaviors, no recent losses that she knows of, no history of using any drugs other than beer and occasional marijuana, no prior history of memory loss, no known significant medical history, and no known enemies that might want to harm him. 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 She last saw him about a week ago. She said he often travels by himself, either camping or hunting or road trips, and she was not surprised that he was as far away as [place]. She spoke with him, and she indicated later to me that she will try to help make arrangements to get him home and will assist him with follow-up once he is back home. Patient Refused Consult: No [facility] - Subjective Progress Notes Subjective Pt is in ICU hospital bed with bandaged left arm. States, "I don't know what happened, I went on a road trip. This was not a suicide attempt, why would I have driven myself to the hospital? I've never been suicidal in my life, I'm not that kind of travis." Suicidal Ideation: None Homicidal Ideation: None [facility] - Objective Mental Status Exam General Appearance: Casual, Good Eye Contact, Cooperative, Polite, Good Interaction Speech: Clear, Spontaneous, Normal Rate, Normal Rhythm, Normal Volume, Normal Tone Mood: Other ("I feel OK other than freaked out by all this, I just want to get back home....") Affect: Full and Appropriate, Calm, Anxious (mildly anxious, asking to call his sister, mildly upset by strange circumstances) Thought Process: Organized, Logical, Goal Directed Thought Content: No Suicidal Ideation, No Homicidal Ideation, No Delusions, No Auditory Halllucinations, No Visual Hallucinations, No Thought Broadcasting, No Ideas of Reference, No Obsessions, No Compulsions, No Other Sensorium: Clear Cognition: Alert & Oriented-Person, Alert & Oriented-Place, Alert & Oriented- Time, Xgrzu-[id number]-Nvoiegmop Memory: Other (Pt has about a 1 to 2 day period of no recollection-- unsure how long. See HPI. Is able to recall all events since he woke up, is able to give me sister and father's phone numbers, good recall for remote history.) Intelligence: Average Insight Judgment: Good (drove himself to the ER, cooperative in the hospital with staff requests) Result Diagram: 05/30/18 1410 05/30/18 0545 [facility] Assessment and Plan [id number] Encounter Date: May 30, 2018 [id number] Encounter Time: 12:00 Follow Up Testing Recommended: No Problems: (1) Amnesia, global, transient Assessment & Plan: Unclear what is etiology of amnesia-- trauma, blood loss? CT of head was unremarkable. Based upon my interaction with the pt., his stated history, mental status exam, and reliable collateral information obtained from his sister, I do not believe that pt represents a danger to himself or others, nor that we have grounds to detain him against his will on a mental health hold. He does not have any prior mental health history, nor clear evidence that this was a suicide attempt. He does not want further treatment here, he wants to return to [place], which sister will help him arrange. He and sister agree that he will follow up at home if any further memory problems occur which sister will help him arrange; she will also help him with wound care and follow up with surgeon for after-care for his arm. Treatment Recommendation: Outpatient Treatment (Follow up for wound care, post- op follow up. Follow up with neurology or psychiatry if indicated (recurrence of memory problems or psychological trauma)) RASHI GARCIA MD May 30, 2018 15:57
[2018-05-30] MEDS ORDERED: OXYC5CAP21 PO (15:58)
[2018-05-30] MEDS ORDERED: ASPI-757 PO (16:07)
[2018-05-30] MEDS ORDERED: ROCURONIUM BROM 10 MG/ML 10 ML ONE (18:00)
== END 2018-05-30 16:15 | disposition home or self-care (01) | DRG 908 ==
LOC: ER 13:39 → OR 15:58 → ICU 22:22
PROVIDERS: ADMIT Orthopaedic Surgery Hand Surgery; ATTEND Orthopaedic Surgery Hand Surgery
PROC: 03QA0ZZ Repair Left Ulnar Artery, Open Approach (ICD-10-PCS; 2018-05-29)
PROC: 0LQ60ZZ Repair Left Lower Arm and Wrist Tendon, Open Approach (ICD-10-PCS; 2018-05-29)
PROC: 0KQB0ZZ Repair Left Lower Arm and Wrist Muscle, Open Approach (ICD-10-PCS; 2018-05-29)
PROC: 01Q50ZZ Repair Median Nerve, Open Approach (ICD-10-PCS; 2018-05-29)
PROC: 0LQ60ZZ Repair Left Lower Arm and Wrist Tendon, Open Approach (ICD-10-PCS; 2018-05-29)
PROC: 0LQ60ZZ Repair Left Lower Arm and Wrist Tendon, Open Approach (ICD-10-PCS; 2018-05-29)
PROC: 0LQ60ZZ Repair Left Lower Arm and Wrist Tendon, Open Approach (ICD-10-PCS; 2018-05-29)
PROC: 0LQ60ZZ Repair Left Lower Arm and Wrist Tendon, Open Approach (ICD-10-PCS; 2018-05-29)
PROC: 0LQ60ZZ Repair Left Lower Arm and Wrist Tendon, Open Approach (ICD-10-PCS; 2018-05-29)
PROC: 0LQ60ZZ Repair Left Lower Arm and Wrist Tendon, Open Approach (ICD-10-PCS; 2018-05-29)
PROC: 0LQ60ZZ Repair Left Lower Arm and Wrist Tendon, Open Approach (ICD-10-PCS; 2018-05-29)
PROC: 0LQ60ZZ Repair Left Lower Arm and Wrist Tendon, Open Approach (ICD-10-PCS; 2018-05-29)
PROC: 0LQ60ZZ Repair Left Lower Arm and Wrist Tendon, Open Approach (ICD-10-PCS; 2018-05-29)
PROC: 0LQ60ZZ Repair Left Lower Arm and Wrist Tendon, Open Approach (ICD-10-PCS; 2018-05-29)
PROC: 03QC0ZZ Repair Left Radial Artery, Open Approach (ICD-10-PCS; principal; 2018-05-29 17:41)
PROC: 30233N1 Transfusion of Nonautologous Red Blood Cells into Peripheral Vein, Percutaneous Approach (ICD-10-PCS; 2018-05-30)
DX: S65.112A Laceration of radial artery at wrist and hand level of left arm, initial encounter (principal); S66.321A Laceration of extensor muscle, fascia and tendon of left index finger at wrist and hand level, initial encounter; N17.9 Acute kidney failure, unspecified; S66.323A Laceration of extensor muscle, fascia and tendon of left middle finger at wrist and hand level, initial encounter; S66.822A Laceration of other specified muscles, fascia and tendons at wrist and hand level, left hand, initial encounter; S65.012A Laceration of ulnar artery at wrist and hand level of left arm, initial encounter; S56.222A Laceration of other flexor muscle, fascia and tendon at forearm level, left arm, initial encounter; D62 Acute posthemorrhagic anemia; S64.12XA Injury of median nerve at wrist and hand level of left arm, initial encounter; F12.90 Cannabis use, unspecified, uncomplicated; F17.210 Nicotine dependence, cigarettes, uncomplicated; R73.9 Hyperglycemia, unspecified; R82.71 Bacteriuria; G45.4 Transient global amnesia; X58.XXXA Exposure to other specified factors, initial encounter; Y92.480 Sidewalk as the place of occurrence of the external cause; Y99.8 Other external cause status
CPT/HCPCS: 36415; 36416; 36430; 70450; 71046; 80305; 80320; 81001; 82040; 82247; 82310; 82374; 82435; 82565; 82947; 82948; 83036; 83605; 84075; 84132; 84155; 84295; 84450; 84460; 84520; 85014; 85018; 85025; 85520; 85730; 86850; 86900; 86901; 86920; 87088; 93005; 99285; A4565; J0690; J0696; J1100; J1170; J1642; J1644; J2001; J2270; J2405; J2704; J2765; J2795; J3010; J3480; J3490; J7030; J7050; P9016